=== PATIENT | female | born 1955 | race Caucasian/White ===

== ENCOUNTER 2020-07-18 14:55 | Emergency (ER) | payer OTHER, BC ==
[~2020-07-18] VITALS: Ht 162.6 cm; Wt 156.0 kg
[2020-07-18 15:00] VITALS: BP 178/91
--- NOTE | 2020-07-18 15:21 | PHYS DOC ---
Adult General Chief Complaint Chief Complaint: FOREIGN BODY HPI HPI Patient is a 64-year-old female presenting for throat irritation. Reports eating chicken salad approximately 4 hours prior to arrival. Unsure if she swallowed a bone but has had throat irritation ever since. Has been able to breathe, has had irritation with swallowing but no problems handling oral secretions. She has never had this happen to her before Review of Systems Review of Systems Fourteen body systems of review of systems have been reviewed. See HPI for pertinent positives and negative responses, other munoz all other systems are negative, non-pertinent or non-contributory Physical Exam Physical Exam Constitutional: Well developed, well nourished, no acute distress, non-toxic appearance. HENT: Normocephalic, atraumatic, bilateral external ears normal, oropharynx moist, no oral exudates, nose normal. Eyes: PERRLA, EOMI, conjunctiva normal, no discharge. Neck: Normal range of motion, no tenderness, supple, no stridor. Cardiovascular: Heart rate regular, sinus rhythm, no murmurs rubs or gallops Lungs & Thorax: Bilateral breath sounds clear to auscultation Abdomen: Bowel sounds normal, soft, no tenderness, no masses, no pulsatile masses. Nonsurgical abdomen, no peritoneal signs Skin: Warm, dry, no erythema, no rash. Back: No tenderness, no CVA tenderness. Extremities: No tenderness, no cyanosis, no clubbing, ROM intact, no edema. Neurologic: Alert and oriented X 3, grossly normal motor & sensory function, no focal deficits noted. Psychologic: Affect normal, judgement normal, mood normal. Current Patient Data Vital Signs Vital Signs Date Time Temp Pulse Resp B/P (MAP) Pulse Ox O2 Delivery O2 Flow Rate FiO2 07/18/20 15:00 97.9 96 16 178/91 (120) 99 Room Air Vital Signs Date Time Temp Pulse Resp B/P (MAP) Pulse Ox O2 Delivery O2 Flow Rate FiO2 07/18/20 15:00 97.9 96 16 178/91 (120) 99 Room Air Lab Results Current Medications Medications (Trade) Dose Ordered Sig/Kelsey Route PRN Reason Start Time Stop Time Status Last Admin Dose Admin Multi-Ingredient Mouthwash/Gargle (Gi Cocktail) 20 ml 1X ONCE PO 07/18/20 16:15 07/18/20 16:19 DC 07/18/20 16:20 Multi-Ingredient Mouthwash/Gargle (Gi Cocktail) 20 ml STK-MED ONCE .ROUTE 07/18/20 16:19 07/18/20 16:20 DC EKG EKG [] Radiology/Procedures Radiology/Procedures XR CHEST 2V History: Reason: SUSPECT INGESTED FB IN THROAT Comparison: None. Findings: The cardiomediastinal silhouette is normal. Pulmonary vasculature is normal. Small probable calcified granuloma right lower lung. The lungs are clear. No pleural effusion or pneumothorax is seen. There is no acute bone abnormality. A radiopaque foreign body in the chest is not identified. There is a small metallic density that projects over the midabdomen is only seen on the lateral view. There are cholecystectomy clips. IMPRESSION: 1. No acute cardiopulmonary process. 2. Small metallic density projects over the midabdomen, only seen on lateral view. Electronically signed by: Jax Chowdhury MD (07/18/2020 4:18 PM) [facility] Heart Score Risk Factors: Risk Factors: DM, Current or recent (<one month) smoker, HTN, HLP, family hist ory of CAD, obesity. Risk Scores: Risk Factors: DM, Current or recent (<one month) smoker, HTN, HLP, family history of CAD, obesity. Course & Med Decision Making Course & Med Decision Making Pertinent Labs and Imaging studies reviewed. (See chart for details) [] Dragon Disclaimer Dragon Disclaimer This electronic medical record was generated, in whole or in part, using a voice recognition dictation system. Departure Departure: Impression: Primary Impression: Throat pain Disposition: HOME / SELF CARE / HOMELESS Condition: STABLE Referrals: TRI ALEJANDRO MD (PCP) Patient Instructions: Swallowed Foreign Body, Adult Additional Instructions: As discussed prior to ER departure, you presented for suspected ingestion of a foreign body. Your vital signs, comprehensive physical examination and radiographs were all unremarkable or for any emergent or surgical issues. Your symptoms resolved with a GI cocktail. As discussed, it is unknown what is causing your symptoms, I did disclose it might be residual chicken salad versus postnasal drip versus other but at present, there is no indication for further diagnostic work-up in ER setting and/or need for hospital admission. As discussed, it is important to contact your primary care physician first thing in the morning to review ER visit today. There might be a role for outpatient specialist consultation as indicated. If you experience any concerning signs or symptoms that present prior to outpatient follow-up please do not hesitate to come back for repeat evaluation. It was a pleasure to take care of you and I wish you the best going forward JERRY GARCIA DO Jul 18, 2020 15:21
[2020-07-18] MEDS ORDERED: LIDO:MAALOX 1:1 20 ML SINGLE DOSE. PO ONE (16:15)
[2020-07-18] MEDS ORDERED: LIDO:MAALOX 1:1 20 ML SINGLE DOSE. ONE (16:19)
--- NOTE | 2020-07-18 16:21 | RAD ---
XR CHEST 2V History: Reason: SUSPECT INGESTED FB IN THROAT Comparison: None. Findings: The cardiomediastinal silhouette is normal. Pulmonary vasculature is normal. Small probable calcified granuloma right lower lung. The lungs are clear. No pleural effusion or pneumothorax is seen. There is no acute bone abnormality. A radiopaque foreign body in the chest is not identified. There is a sm all metallic density that projects over the midabdomen is only seen on the lateral view. There are ch olecystectomy clips. IMPRESSION: 1. No acute cardiopulmonary process. 2. Small metallic density projects over the midabdomen, only seen on lateral view. Electronically signed by: Jax Chowdhury MD (07/18/2020 4:18 PM) [facility]
== END 2020-07-18 16:45 | disposition home or self-care (01) ==
LOC: ER 14:55
DX: R07.0 Pain in throat (principal)
CPT/HCPCS: 71046; 99283-25